=== PATIENT | male | born 1960 | race Caucasian/White ===

== ENCOUNTER 2024-04-27 16:45 | Emergency (ER) | payer OTHER ==
--- NOTE | 2024-04-27 17:36 | RAD REPORT ---
EXAM DESCRIPTION: RAD - Chest Single View - 04/27/2024 5:24 pm CLINICAL HISTORY: CHEST PAIN Chest pain. COMPARISON: Chest Single View dated 06/01/2023 FINDINGS: Portable technique limits examination quality. The lungs are grossly clear. The heart is mildly prominent. No displaced fractures.Dual lead pacer de vice present. IMPRESSION: No acute intrathoracic process suspected.
[2024-04-27 17:43] LABS: Absolute Basophils 0.1 K/uL (0-0.5); Absolute Eosinophils 0.1 K/uL (0-0.5); Absolute Lymphocytes (CBC) 2.7 K/uL (0.7-4.9); Absolute Monocytes 0.6 K/uL (0.1-1.3); Basophils % 0.6 % (0-1.3); Eosinophils % 1.7 % (0-4.4); Hematocrit 44.2 % (39.6-49.0); Hemoglobin 15.1 g/dL (13.6-17.9); Lymphocytes % 31.8 % (15.3-44.8); MCH 30.7 pg (27.0-35.0); MCHC 34.2 g/dL (32.0-36.0); MCV 89.8 fL (80-100); MPV 8.8 fL (7.6-11.3); Neutrophils % 58.9 % (41.7-73.7); Nucleated Red Blood Cells % 0.1 % (0-0); Platelets 231 thou/uL (152-406); RBC Red Blood Cell Count 4.92 M/uL (4.33-5.43); Red Cell Distribution Width 13.3 % (12.1-15.2)
[2024-04-27 17:49] LABS: PT Prothrombin Time 18.7 SECONDS (9.4-12.5); Protime INR 1.7
[2024-04-27 18:03] LABS: Albumin 3.9 g/dL (3.4-5.0); Albumin/Globulin Ratio 1.1 (1.1-1.8); Anion Gap 7.7 mEq/L (5.0-15.0); Bilirubin Direct 0.2 mg/dL (0-0.2); Bilirubin Indirect, Calculated 0.3 mg/dL (0.2-0.8); Bilirubin Total 0.5 mg/dL (0.2-1.0); Globulin 3.6 g/dL (2.3-3.5); Magnesium 2.1 mg/dL (1.6-2.4); Potassium 3.7 mEq/L (3.5-5.1); Protein, Total 7.5 g/dL (6.4-8.2); Troponin High Sensitivity 11.3 pg/mL (<58.9)
[2024-04-27] MEDS ORDERED: HYDROCODONE/APAP 7.5/325 MG TAB ONE (20:02)
--- NOTE | 2024-04-27 20:15 | ER ---
Nurse's Notes [facility] Name: Olu Scanlon Age: 63 yrs Sex: Male : 1960 Arrival Date: 04/27/2024 Time: 16:45 Bed 12 Private MD: Diagnosis: Presence of cardiac pacemaker;Chest pain, unspecified Presentation: 04/27 16:57 Chief complaint: Patient states: Chest tightness for 3 days. New pacemaker placed about ll1 5 weeks ago. Coronavirus screen: Client denies travel out of the [place] in the last 14 days. At this time, the client does not indicate any symptoms associated with coronavirus-19. Ebola Screen: Patient denies travel to an Ebola-affected area in the 21 days before illness onset. Initial Sepsis Screen: Does the patient meet any 2 criteria? No. Patient's initial sepsis screen is negative. Does the patient have a suspected source of infection? No. Patient's initial sepsis screen is negative. Risk Assessment: Do you want to hurt yourself or someone else? Patient reports no desire to harm self or others. Onset of symptoms was April 25, 2024. 16:57 Method Of Arrival: Ambulatory ll1 16:57 Acuity: CHUY 2 ll1 Historical: - Allergies: 16:58 No Known Allergies; ll1 - PMHx: 16:58 Myocardial infarction; TIA; ll1 16:54 Myocardial infarction; TIA; iw - PSHx: 16:58 pacemaker x 2; ll1 16:54 pacemaker x 2 (TIA); iw - Immunization history:: Adult Immunizations up to date, Adult Immunizations up to date. - Infectious Disease History:: Denies. - Social history:: Smoking status: Patient denies any tobacco usage or history of. Screenin:22 [facility] ED Fall Risk Assessment (Adult) History of falling in the last 3 months, iw including since admission No falls in past 3 months (0 pts) Confusion or Disorientation No (0 pts). [facility] ED Fall Risk Assessment (Adult) Intoxicated or Sedated No (0 pts) Impaired Gait No (0 pts) Mobility Assist Device Used No (0 pt) Altered Elimination No (0 pt) Score/Fall Risk Level 0 - 2 = Low Risk Oriented to surroundings. Abuse screen: Denies threats or abuse. Denies injuries from another. Nutritional screening: No deficits noted. Tuberculosis screening: No symptoms or risk factors identified. Assessment: 17:15 General: Appears in no apparent distress. Behavior is calm, cooperative. Pain: iw Complains of pain in anterior aspect of right upper chest, anterior aspect of left upper chest and mid-sternal area Pain radiates to chest. Pain: Pain began 2-3 days ago. Neuro: Level of Consciousness is awake, alert, obeys commands, Oriented to person, place, time, situation, Moves all extremities. Full function. Cardiovascular: Reports chest pain, Capillary refill < 3 seconds in bilateral fingers Patient's skin is warm and dry. Respiratory: Respiratory effort is even, unlabored, Respiratory pattern is regular, symmetrical. GI: Abdomen is flat, non-distended. Musculoskeletal: Range of motion:. 19:22 Reassessment: Patient appears in no apparent distress at this time. Patient and/or iw family updated on plan of care and expected duration. Pain level reassessed. Patient is alert, oriented x 3, equal unlabored respirations, skin warm/dry/pink. 20:43 Reassessment: Patient appears in no apparent distress at this time. Patient and/or jb4 family updated on plan of care and expected duration. Pain level reassessed. Patient is alert, oriented x 3, equal unlabored respirations, skin warm/dry/pink. 04/28 00:15 Reassessment: Patient appears in no apparent distress at this time. Patient and/or jb4 family updated on plan of care and expected duration. Pain level reassessed. Patient is alert, oriented x 3, equal unlabored respirations, skin warm/dry/pink. Vital Signs: 04/27 16:57 BP 139 / 87; Pulse 74; Resp 16; Temp 97.6; Pulse Ox 100% on R/A; Pain 4/10; ll1 19:22 BP 119 / 81; Pulse 73; Resp 16; Pulse Ox 98% on R/A; iw 20:43 BP 111 / 71; Pulse 72; Resp 17; Pulse Ox 94% on R/A; jb4 04/28 00:15 BP 108 / 90; Pulse 75; Resp 16; Pulse Ox 96% on R/A; jb4 04/27 16:57 Pain Scale: Adult ll1 Vitals: 04/27 20:43 Cardiac Rhythm Assessment Paced. jb4 ED Course: 16:46 Patient arrived in ED. ra3 16:46 Maricruz Kapadia [facility]C [facility]. sb4 16:46 Rony Oseguera DO is Attending Physician. sb4 16:58 Triage completed. ll1 16:58 Arm band placed on. EKG completed in triage. Results shown to MD. ll1 17:26 XRAY Chest (1 view) In Process Unspecified. EDMS 17:36 Heaven Ng, RN is Primary Nurse. iw 19:23 Patient maintains SpO2 saturation greater than 95% on room air. iw 04/28 00:15 Patient has correct armband on for positive identification. Bed in low position. Call jb4 light in reach. Side rails up X 1. Provided Education on: need for transfer.. Client placed on continuous cardiac and pulse oximetry monitoring. NIBP monitoring applied. laboratory monitor on. Pulse ox on. 00:15 No provider procedures requiring assistance completed. Patient transferred, IV remains jb4 in place. Administered Medications: 04/27 20:06 Drug: Hydrocodone-Acetaminophen PO (7.5 mg-325 mg) 1 tabs PO once Route: PO; cm10 Medication: 19:22 VIS not applicable for this client. iw Outcome: 20:14 ER care complete, transfer ordered by MD. sb4 04/28 00:15 Transferred by ground EMS to [facility], Transfer form completed. jb4 X-rays sent w/ patient. Condition: stable Discharge instructions given to patient, Instructed on the need for transfer, Demonstrated understanding of instructions, 00:16 Patient left the ED. jb4 Signatures: Dispatcher [employer] EDMD Heaven Ng, RN LEONARDO iw Brandon Dominique RN RN jb4 Darrell Medina RN RN ll1 Maricruz Kapadia PA-C PA-C sb4 Dianne Taveras RN RN cm10 Jagruti Bauman ra3
--- NOTE | 2024-04-27 20:15 | EDPHYS ---
Physician Documentation [facility] Name: Olu Scanlon Age: 63 yrs Sex: Male : 1960 Arrival Date: 04/27/2024 Time: 16:45 Bed 12 Private MD: ED Physician Rony Osegurea HPI: 04/27 17:19 This 63 yrs old Male presents to ER via Ambulatory with complaints of Chest Pain, Chest sb4 Tightness. 17:19 chest pain/pressure x 3 days. denies any radiation, shortness of breath, dizziness, sb4 palpitations, nausea, vomiting, dizziness. has cardiac history- MA and 2 strokes. 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 is on aspirin, plavix, and xarelto. had his pacemaker replaced 5 weeks ago. Historical: - Allergies: 16:58 No Known Allergies; ll1 - PMHx: 16:58 Myocardial infarction; TIA; ll1 16:54 Myocardial infarction; TIA; iw - PSHx: 16:58 pacemaker x 2; ll1 16:54 pacemaker x 2 (TIA); iw - Immunization history:: Adult Immunizations up to date, Adult Immunizations up to date. - Infectious Disease History:: Denies. - Social history:: Smoking status: Patient denies any tobacco usage or history of. ROS: 17:19 Constitutional: Negative for fever, chills, and weight loss, sb4 17:19 Cardiovascular: Positive for chest pain, 18:14 All other systems are negative, sb4 Exam: 18:14 Constitutional: This is a well developed, well nourished patient who is awake, alert, sb4 and in no acute distress. Head/Face: Normocephalic, atraumatic. Eyes: Extra-ocular motions intact. Periorbital areas with no swelling, redness, or edema. ENT: Mucous membranes moist. Cardiovascular: Regular rate and rhythm with a normal S1 and S2. Respiratory: Lungs have equal breath sounds bilaterally, clear to auscultation and percussion. No rales, rhonchi or wheezes noted. No increased work of breathing, no retractions or nasal flaring. Abdomen/GI: Soft, non-tender, no distension. Skin: Warm, dry with normal turgor. Normal color with no rashes, no lesions, and no evidence of cellulitis. MS/ Extremity: Pulses equal, no cyanosis. Neurovascular intact. Full, normal range of motion. Neuro: Awake and alert, GCS 15, oriented to person, place, time, and situation. Motor strength 5/5 in all extremities. Sensory grossly intact. Vital Signs: 16:57 BP 139 / 87; Pulse 74; Resp 16; Temp 97.6; Pulse Ox 100% on R/A; Pain 4/10; ll1 19:22 BP 119 / 81; Pulse 73; Resp 16; Pulse Ox 98% on R/A; iw 20:43 BP 111 / 71; Pulse 72; Resp 17; Pulse Ox 94% on R/A; jb4 04/28 00:15 BP 108 / 90; Pulse 75; Resp 16; Pulse Ox 96% on R/A; jb4 04/27 16:57 Pain Scale: Adult ll1 MDM: 04/27 16:48 Patient medically screened. sb4 20:50 External Records Reviewed: [employer] pacemaker interrogated. Shows 434 episodes sb4 of nonsustained V. tach events since February 08, 2024 and 51 episodes of SVT. 20:51 Data reviewed: vital signs, nurses notes, lab test result(s), EKG, radiologic studies, sb4 I have discussed the patient's presentation/case with the attending Emergency Department Physician;. Consideration of Admission/Observation Escalation of care including admission/observation considered. Counseling: I had a detailed discussion with the patient and/or guardian regarding the historical points, exam findings, and any diagnostic results supporting the discharge/admit diagnosis, lab results, radiology results, the need to transfer to another facility, for higher level of care, [facility] does not immediately have the required specialist. ED course: patient still having chest pain, pacemaker interrogation reveals 434 episodes of nonsustained vtach and 51 episodes of SVT in 2.5 months. will transfer patient back to his glass fitter, Dr. Knight . 21:56 Management of patient was discussed with the following: Paralegal Supervisor: Dr. Benson, sb4 glass fitter at [facility], agrees to consult. 04/27 17:04 Order name: Basic Metabolic Panel; Complete Time: 18:05 sb4 04/27 17:04 Order name: CBC with Diff; Complete Time: 18:12 sb4 04/27 17:04 Order name: LFT's; Complete Time: 18:05 sb4 04/27 17:04 Order name: Magnesium; Complete Time: 18:05 sb4 04/27 17:04 Order name: NT PRO-BNP; Complete Time: 18:05 sb4 04/27 17:04 Order name: PT-INR; Complete Time: 17:51 sb4 04/27 17:04 Order name: Troponin HS; Complete Time: 18:05 sb4 04/27 17:04 Order name: XRAY Chest (1 view) sb4 04/27 17:04 Order name: EKG; Complete Time: 17:05 sb4 04/27 20:53 Order name: EKG; Complete Time: 20:54 sb4 04/27 17:04 Order name: Cardiac monitoring; Complete Time: 18:38 sb4 04/27 17:04 Order name: EKG - Nurse/Tech; Complete Time: 17:36 sb4 04/27 17:04 Order name: IV Saline Lock; Complete Time: 17:36 sb4 04/27 17:04 Order name: Labs collected and sent; Complete Time: 17:36 sb4 04/27 17:04 Order name: O2 Per Protocol; Complete Time: 18:38 sb4 04/27 17:04 Order name: O2 Sat Monitoring; Complete Time: 18:38 sb4 04/27 17:04 Order name: Misc. Order: interrogate pacemaker; Complete Time: 18:07 sb4 Administered Medications: 20:06 Drug: Hydrocodone-Acetaminophen PO (7.5 mg-325 mg) 1 tabs PO once Route: PO; cm10 Disposition: 18:58 I was immediately available on-site in the Emergency Department for consultation in the ms3 care of the patient. Disposition Summary: 04/27/24 20:14 Transfer Ordered Notes: Transfer Location: [facility] sb4 Reason: Higher level of care sb4 Condition: Fair sb4 Problem: new sb4 Symptoms: are unchanged sb4 Accepting Physician: Dr. Knight(04/28/24 00:16) jb4 Diagnosis - Presence of cardiac pacemaker sb4 - Chest pain, unspecified sb4 Forms: - Medication Reconciliation Form sb4 - SBAR form sb4 Signatures: Dispatcher [employer] EDHeaven Alvarez RN RN Brandon Dominique RN RN jb4 Darrell Medina RN RN ll1 Rony Oseguera, DO DO ms3 Maricruz Kapadia PA-C PA-C sb4 Dianne Taveras RN RN cm10 Corrections: (The following items were deleted from the chart) 20:15 20:14 Dr. Eugene garrison sb4 20:15 20:14 Ventricular tachycardia ever4 sb4 04/28 00:16 04/27 20:15 Dr. Eugene [email or web address] jb4
--- NOTE | 2024-04-29 14:45 | EKG ---
Test Date: 2024-04-27 Test Time: 16:52:37 Cripple Cutter: MINH MEASUREMENT RESULTS: Intervals: Rate: 82 [place]: QRSD: 96 QT: 374 QTc: 436 [place]: P: [place]: QRS: 147 T: -17 INTERPRETIVE STATEMENTS: Demand pacemaker, interpretation is based on intrinsic rhythm Atrial fibrillation with premature ventricular or aberrantly conducted complexes Left posterior fascicular block Abnormal ECG Compared to ECG 06/01/2023 12:25:55 Ventricular premature complex(es) now present Left posterior fascicular block now present Right-axis deviation no longer present Myocardial infarct finding no longer present Electronically Signed On 04-29-24 14:40:56 CDT by Rodo Benitez
== END 2024-04-28 00:16 | disposition short-term general hospital (02) ==
LOC: ER 16:45
DX: R07.89 Other chest pain (principal); Z95.0 Presence of cardiac pacemaker; I25.2 Old myocardial infarction; Z86.73 Personal history of transient ischemic attack (TIA), and cerebral infarction without residual deficits; Z79.01 Long term (current) use of anticoagulants
CPT/HCPCS: 36415; 71045; 80048; 80076; 83735; 83880; 84484; 85025; 85610; 93005; 99285

== ENCOUNTER 2025-01-08 16:35 | Emergency (ER) | payer OTHER ==
[2025-01-08] MEDS ORDERED: MECLIZINE HCL 12.5 MG TAB ONE (17:25)
[2025-01-08] MEDS ORDERED: NA CHLORIDE 0.9% 1,000 ML ONE (17:26)
[2025-01-08 17:29] LABS: Absolute Eosinophils 0.1 K/uL (0-0.5); Absolute Lymphocytes (CBC) 2.4 K/uL (0.7-4.9); Absolute Monocytes 0.5 K/uL (0.1-1.3); Absolute Neutrophil 7.1 K/uL (1.8-8.0); Basophils % 0.4 % (0-1.3); Hematocrit 46.2 % (39.6-49.0); Hemoglobin 15.9 g/dL (13.6-17.9); Lymphocytes % 23.8 % (15.3-44.8); MCH 30.2 pg (27.0-35.0); MCHC 34.5 g/dL (32.0-36.0); MCV 87.7 fL (80-100); MPV 8.9 fL (7.6-11.3); Neutrophils % 69.8 % (41.7-73.7); Nucleated Red Blood Cells % 0.1 % (0-0); Platelets 252 thou/uL (152-406); RBC Red Blood Cell Count 5.27 M/uL (4.33-5.43); Red Cell Distribution Width 13.5 % (12.1-15.2)
--- NOTE | 2025-01-08 17:41 | RAD REPORT ---
EXAM: CT brain without contrast HISTORY: STROKE ALERT COMPARISON: None TECHNIQUE: Multiple contiguous axial images were obtained and a CT of the brain without contrast. Sag ittal and coronal reformats were performed. One or more of the following dose reduction techniques were used: Automated exposure control, adjust ment of the mA and/or kV according to patient size, and/or iterative reconstruction. FINDINGS: No evidence of hydrocephalus, intracranial hemorrhage, or extra-axial fluid collection. The brain is normal in morphology. No evidence of midline shift or areas of brain edema. The calvarium is intact. The visualized paranasal sinuses and mastoid air cells are essentially clear . IMPRESSION: No evidence of acute intracranial abnormality. The findings were communicated with Isrrael Perry MD at 01/08/2025 5:38 PM by telephone.
[2025-01-08 17:42] LABS: PT Prothrombin Time 19.3 SECONDS (10-13.0); PTT, Activated Partial Thromb 40.5 SECONDS (27.2-37.4); Protime INR 1.74
--- NOTE | 2025-01-08 17:45 | RAD REPORT ---
EXAMINATION: CTA HEAD CLINICAL INDICATION: STROKE ALERT TECHNIQUE: Axial CT images were obtained through the head after intravenous contrast utilizing angiog raphic protocol with 3D post-processing (maximum intensity projection images, volume rendered images and/or shaded surface rendered images). One or more of the following dose reduction technique s were used: Automated exposure control, adjustment of the mA and/or kV according to patient size, and/or iterative reconstruction. Unless otherwise specified, incidental findings do not require dedic ated imaging follow-up. COMPARISON: No prior exam. FINDINGS: ICA: The petrous, cavernous, and supraclinoid segments of the bilateral internal carotid arteries are normal. The ophthalmic artery origins are visualized and normal. The posterior communicating arteries are patent. ANDREW: Anterior cerebral arteries are normal bilaterally. The anterior communicating artery is patent. MCA: Middle cerebral arteries are normal bilaterally. 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 Vertebrobasilar: The vertebral arteries are patent. The basilar artery is normal in appearance. 3D images confirm these findings. IMPRESSION: No significant flow abnormality is identified.
--- NOTE | 2025-01-08 17:47 | RAD REPORT ---
EXAMINATION: CTA NECK CLINICAL INDICATION: stroke alert TECHNIQUE: Axial CT images were obtained from the aortic arch to the skull base after intravenous con trast utilizing angiographic protocol with 3D post-processing (maximum intensity projection images, volume rendered images and/or shaded surface rendered images). One or more of the following dose redu ction techniques were used: Automated exposure control, adjustment of the mA and/or kV according to patient size, and/or iterative reconstruction. Unless otherwise specified, incidental findings do not require dedicated imaging follow-up. COMPARISON: No prior exam. FINDINGS: AORTA: The imaged aortic arch is normal. CCA: The common carotid arteries are patent and normal in caliber. ICA/ECA: Bilateral internal and external carotid arteries are patent. There is no significant interna l carotid artery stenosis. VERTEBRAL: The cervical vertebral arteries are patent. The vertebral arteries are codominant. SOFT TISSUE: No significant neck soft tissue abnormalities. The visualized lung apices are clear. Chr onic sphenoid sinusitis. 3D images confirm these findings. IMPRESSION: No significant flow abnormality of the neck vessels is identified. NASCET criteria used. Mild 0-49% stenosis Moderate 50-69% stenosis Severe 70-99% stenosis
[2025-01-08 17:53] LABS: Anion Gap 12.9 mEq/L (5.0-15.0); Potassium 3.9 mEq/L (3.5-5.1); Troponin High Sensitivity 9.4 pg/mL (<58.9)
[2025-01-08] MEDS ORDERED: ASPIRIN 325 MG TAB ONE (18:04)
[2025-01-08] MEDS ORDERED: FOLIC ACID 5 MG/ML VIAL ONE (18:16)
--- NOTE | 2025-01-08 18:16 | RAD REPORT ---
EXAMINATION: ONE VIEW CHEST XR CLINICAL INDICATION: stroke alert TECHNIQUE: Frontal chest projection is submitted. Examination is limited by patient positioning and t echnique. COMPARISON: 04/27/2024 FINDINGS: The lungs are well inflated and clear. The heart is upper limit of normal in size. No displaced fract ures identified. Dual-lead pacer device. IMPRESSION: No acute intrathoracic abnormalities.
--- NOTE | 2025-01-08 18:20 | EDPHYS ---
Physician Documentation [facility] Name: Olu Scanlon Age: 64 yrs Sex: Male : 1960 Arrival Date: 01/08/2025 Time: 16:35 Bed 3 Private MD: ED Physician Isrrael Perry HPI: 01/08 17:23 This 64 yrs old Male presents to ER via Ambulatory with complaints of Balance rn Instability, Dizziness, Doesn't Feel Right. 17:24 The patient presents to the emergency department with difficult walking, the patient rn falls to the right. Onset: The symptoms/episode began/occurred this morning. Severity of symptoms: At their worst the symptoms were moderate in the emergency department the symptoms are unchanged. The patient has experienced similar episodes in the past, but today's symptoms are worse. Patient reports upon awakening today immediately noticed vertigo-like symptoms, dizziness, room spinning, unable to walk when getting out of bed, feels like is falling to the right. Has had vertigo before but this feels different as he says this is constant instead of episodic like it used to be and is also associated with right arm and right leg heaviness/weakness. No speech or vision trouble. Took Dramamine at home and did not help. No head injury. Last known normal was last night when went to bed.. Historical: - Allergies: 16:47 No Known Allergies; aa5 - PMHx: 16:47 Myocardial infarction; TIA; vertigo (Unknown); aa5 16:55 Diabetes mellitus; Type 2; aa5 - PSHx: 16:47 pacemaker x 2; aa5 - Immunization history:: Adult Immunizations unknown. - Infectious Disease History:: Denies. - Social history:: Smoking status: Patient denies any tobacco usage or history of. - Family history:: not pertinent. - Hospitalizations: : No recent hospitalization is reported. ROS: 17:24 Constitutional: Negative for fever, chills, and weight loss, Neck: Negative for injury, rn pain, and swelling, Cardiovascular: Negative for chest pain, palpitations, and edema, Respiratory: Negative for shortness of breath, cough, wheezing, and pleuritic chest pain, Abdomen/GI: Negative for abdominal pain, nausea, vomiting, diarrhea, and constipation, MS/Extremity: Negative for injury and deformity, Skin: Negative for injury, rash, and discoloration, Neuro: Negative for headache, numbness, tingling, and seizure, Exam: 17:24 Constitutional: This is a well developed, well nourished patient who is awake, alert, rn appears anxious Cardiovascular: Regular rate and irregular rhythm. No pulse deficits. Respiratory: No increased work of breathing, no retractions or nasal flaring. Abdomen/GI: Soft, non-tender MS/ Extremity: Pulses equal, no cyanosis. Neurovascular intact. Full, normal range of motion. Equal circumference. Neuro: Awake and alert, GCS 15, oriented to person, place, time, and situation. Cranial nerves II-XII grossly intact. 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 Gait not tested due to moderate to severe dizziness. 18:35 ECG was reviewed by the Attending Physician. rn Vital Signs: 16:48 BP 112 / 84; Pulse 92; Resp 18 S; Temp 97.9(TE); Pulse Ox 96% on R/A; Weight 88.45 kg aa5 (R); Height 6 ft. 1 in. (R); 17:44 BP 127 / 85; Pulse 89; Resp 18; Pulse Ox 96% on R/A; jb4 18:38 BP 120 / 83; Pulse 85; Resp 16; Pulse Ox 96% on R/A; jb4 19:43 BP 118 / 81; Pulse 92; Resp 16; Temp 97.9; Pulse Ox 96% ; Pain 0/10; bm8 21:42 BP 107 / 79; Pulse 88; Resp 17; Temp 97.9; Pulse Ox 96% ; Pain 0/10; bm8 22:27 BP 111 / 87; Pulse 90; Resp 18; Temp 98; Pulse Ox 98% ; Pain 0/10; bm8 16:48 Body Mass Index 25.73 (88.45 kg, 185.42 cm) aa5 19:43 Pain Scale: Adult bm8 21:42 Pain Scale: Adult bm8 22:27 Pain Scale: Adult bm8 NIH Stroke Scale Scores: 17:30 NIHSS Score: 2 jb4 18:18 NIHSS Score: 0 rn 18:38 NIHSS Score: 2 jb4 Janis Coma Score: 19:43 Eye Response: spontaneous(4). Motor Response: obeys commands(6). Verbal Response: bm8 oriented(5). Total: 15. 21:42 Eye Response: spontaneous(4). Motor Response: obeys commands(6). Verbal Response: bm8 oriented(5). Total: 15. 22:27 Eye Response: spontaneous(4). Motor Response: obeys commands(6). Verbal Response: bm8 oriented(5). Total: 15. MDM: 16:51 Medical Screening Exam initiated rn 17:38 ED course: Dr. Huang reports negative CT stroke protocol head. Patient woke up with rn symptoms and last known normal last night. Not TNK candidate. Awaiting on CT angios head and neck.. 18:18 Data reviewed: vital signs, nurses notes, lab test result(s), EKG, radiologic studies, rn CT scan, and as a result, I will admit patient. Consideration of Admission/Observation Patient was admitted/placed on observation. Escalation of care including admission/observation considered. Care significantly affected by the following chronic conditions: Hypertension, TIA, CVA, vertigo. Counseling: I had a detailed discussion with the patient and/or guardian regarding the historical points, exam findings, and any diagnostic results supporting the discharge/admit diagnosis, lab results, radiology results, the need for further work-up and treatment in the hospital, the need to transfer to another facility. 01/08 17:05 Order name: Basic Metabolic Panel; Complete Time: 17:53 rn 01/08 17:05 Order name: CBC with Diff; Complete Time: 17:48 rn 01/08 17:05 Order name: High Sensitivity Troponin; Complete Time: 17:53 rn 01/08 17:05 Order name: Protime (+inr); Complete Time: 17:48 rn 01/08 17:05 Order name: Ptt, Activated; Complete Time: 17:48 rn 01/08 17:52 Order name: Glucose, Ancillary Testing; Complete Time: 17:53 EDMD 01/08 17:54 Order name: Glucose, Ancillary Testing EDMD 01/08 21:21 Order name: CREATININE WHOLE BLOOD EDMD 01/08 17:05 Order name: CT Head Angio; Complete Time: 17:48 rn 01/08 17:05 Order name: CT Neck Angio; Complete Time: 17:48 rn 01/08 17:05 Order name: CT Stroke Brain w/o Contrast; Complete Time: 17:48 rn 01/08 17:05 Order name: Stroke CXR 1 View; Complete Time: 18:17 rn 01/08 17:05 Order name: Accucheck; Complete Time: 17:43 rn 01/08 17:05 Order name: Cardiac monitoring; Complete Time: 17:38 rn 01/08 17:05 Order name: EKG - Nurse/Tech; Complete Time: 17:43 rn 01/08 17:05 Order name: IV Saline Lock; Complete Time: 17:20 rn 01/08 17:05 Order name: Labs collected and sent; Complete Time: 17:20 rn 01/08 17:05 Order name: NPO; Complete Time: 17:20 rn 01/08 17:05 Order name: O2 Per Protocol; Complete Time: 17:20 rn 01/08 17:05 Order name: O2 Sat Monitoring; Complete Time: 17:20 rn 01/08 17:05 Order name: Stroke Swallow Screen; Complete Time: 17:43 rn EC:35 Rate is 91 beats/min. Rhythm is irregularly irregular. QRS [place] is Normal. QT interval rn is normal. No Q waves. T waves are Normal. No ST changes noted. Clinical impression: Atrial Fibrillation. Interpreted by me. Reviewed by me. Administered Medications: 17:43 Drug: NS 0.9% IV 1000 ml IV at 1000 ml once; to be given as a bolus over 60 minutes jb4 Route: IV; Rate: 1000 ml; Site: right antecubital; 19:45 Follow up: Response: No adverse reaction; IV Status: Completed infusion bm8 17:44 Drug: Meclizine PO 50 mg PO once Route: PO; jb4 18:22 Follow up: Response: No adverse reaction jb4 18:09 Drug: Aspirin PO 325 mg PO once Route: PO; jb4 18:22 Follow up: Response: No adverse reaction jb4 18:22 Drug: foLIC Acid IVPB 1 mg IVPB once Route: IVPB; Site: right antecubital; jb4 19:44 Follow up: Response: No adverse reaction; IV Status: Completed infusion bm8 Disposition Summary: 01/08/25 18:19 Transfer Ordered Notes: Transfer Location: [facility] rn Reason: Higher level of care rn Condition: Stable rn Problem: new rn Symptoms: are unchanged rn Accepting Physician: (01/08/25 23:03) bm8 Diagnosis - Ataxia, unspecified rn - Weakness rn Forms: - Medication Reconciliation Form rn - SBAR form rn NIH Stroke Scale - NIH Stroke Score Date: 01/08/2025 Time: 17:30 Total Score = 2 10. Dysarthria (speech clarity - read or repeat words) - 0(Normal) 11. Extinction and Inattention (visual/tactile/auditory/spatial/personal) - 0(No abnormality) 1a. Level of Consciousness (LOC) - 0(Alert) 1b. Level of Consciousness (LOC) (Month \T\ Age) - 0(Both) 1c. LOC Commands (Open \T\ Closes Eyes/Plaster Machine Operator) - 0(Both) 2. Best Gaze (Lateral Gaze Paresis) - 0(Normal) 3. Visual Field Loss - 0(No visual loss) 4. Facial Palsy - 0(Normal) 5a. Left Arm: Motor (10-second hold) - 0(No drift) 5b. Right Arm: Motor (10-second hold) - 0(No drift) 6a. Left Leg: Motor (5-second hold - always test supine) - 0(No drift) 6b. Right Leg: Motor (5-second hold - always test supine) - 0(No drift) 7. Limb Ataxia (finger/nose \T\ heel/daly - test with eyes open) - 2(Present in two limbs) 8. Sensory Loss (pinprick arms/legs/face) - 0(Normal) 9. Best Language: Aphasia (description/naming/reading) - 0(No aphasia) Initials: jb4 NIH Stroke Scale - NIH Stroke Score Date: 01/08/2025 Time: 18:18 Total Score = 0 10. Dysarthria (speech clarity - read or repeat words) - 0(Normal) 11. Extinction and Inattention (visual/tactile/auditory/spatial/personal) - 0(No abnormality) 1a. Level of Consciousness (LOC) - 0(Alert) 1b. Level of Consciousness (LOC) (Month \T\ Age) - 0(Both) 1c. LOC Commands (Open \T\ Closes Eyes/Plaster Machine Operator) - 0(Both) 2. Best Gaze (Lateral Gaze Paresis) - 0(Normal) 3. Visual Field Loss - 0(No visual loss) 4. Facial Palsy - 0(Normal) 5a. Left Arm: Motor (10-second hold) - 0(No drift) 5b. Right Arm: Motor (10-second hold) - 0(No drift) 6a. Left Leg: Motor (5-second hold - always test supine) - 0(No drift) 6b. Right Leg: Motor (5-second hold - always test supine) - 0(No drift) 7. Limb Ataxia (finger/nose \T\ heel/daly - test with eyes open) - 0(Absent) 8. Sensory Loss (pinprick arms/legs/face) - 0(Normal) 9. Best Language: Aphasia (description/naming/reading) - 0(No aphasia) Initials: pedro NIH Stroke Scale - NIH Stroke Score Date: 01/08/2025 Time: 18:38 Total Score = 2 10. Dysarthria (speech clarity - read or repeat words) - 0(Normal) 11. Extinction and Inattention (visual/tactile/auditory/spatial/personal) - 0(No abnormality) 1a. Level of Consciousness (LOC) - 0(Alert) 1b. Level of Consciousness (LOC) (Month \T\ Age) - 0(Both) 1c. LOC Commands (Open \T\ Closes Eyes/Plaster Machine Operator) - 0(Both) 2. Best Gaze (Lateral Gaze Paresis) - 0(Normal) 3. Visual Field Loss - 0(No visual loss) 4. Facial Palsy - 0(Normal) 5a. Left Arm: Motor (10-second hold) - 0(No drift) 5b. Right Arm: Motor (10-second hold) - 0(No drift) 6a. Left Leg: Motor (5-second hold - always test supine) - 0(No drift) 6b. Right Leg: Motor (5-second hold - always test supine) - 0(No drift) 7. Limb Ataxia (finger/nose \T\ heel/daly - test with eyes open) - 2(Present in two limbs) 8. Sensory Loss (pinprick arms/legs/face) - 0(Normal) 9. Best Language: Aphasia (description/naming/reading) - 0(No aphasia) Initials: jb4 Signatures: Dispatcher [employer] EDIsrrael Moreno MD MD rn Calderon, Audri, RN RN aa5 Brandon Dominique RN RN jb4 Marcus Alxeis RN RN bm8 Corrections: (The following items were deleted from the chart) 17: 17:06 BASIC METABOLIC PANEL+C.LAB.BRZ ordered. EDMS EDMS 17: 17:06 CBC+H.LAB.BRZ ordered. EDMS EDMS 17: 17:06 Troponin High Sensitivity+C.LAB.BRZ ordered. EDMS EDMS 17: 17:06 PROTIME (+INR)+COAG.LAB.BRZ ordered. EDMS EDMS 17: 17:06 PTT, ACTIVATED+COAG.LAB.BRZ ordered. EDMS EDMS 17: 17:06 CT-STROKE BRAIN W/O CONTRAST+CT.RAD.BRZ ordered. EDMS EDMS 17: 17:06 Chest Single View+RAD.RAD.BRZ ordered. EDMD EDMS 18:35 17:24 Constitutional: This is a well developed, well nourished patient who is rn awake, alert, appears anxious Cardiovascular: Regular rate and rhythm. No pulse deficits. Respiratory: No increased work of breathing, no retractions or nasal flaring. Abdomen/GI: Soft, non-tender MS/ Extremity: Pulses equal, no cyanosis. Neurovascular intact. Full, normal range of motion. Equal circumference. Neuro: Awake and alert, GCS 15, oriented to person, place, time, and situation. Cranial nerves II-XII grossly intact. 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 Gait not tested due to moderate to severe dizziness. rn 23:03 18:19 Dr. vasquez [email or web address]
--- NOTE | 2025-01-08 18:20 | ER ---
Nurse's Notes Formerly [facility] Name: Olu Scanlon Age: 64 yrs Sex: Male : 1960 Arrival Date: 01/08/2025 Time: 16:35 Bed 3 Private MD: Diagnosis: Ataxia, unspecified;Weakness Presentation: 01/08 16:48 Acuity: CHUY 2 aa5 16:48 Chief complaint: Patient states: unsteady and dizziness that began today upon waking aa5 up. Pt reports hx of vertigo. Coronavirus screen: At this time, the client does not indicate any symptoms associated with coronavirus-19. Ebola Screen: Patient denies travel to an Ebola-affected area in the 21 days before illness onset. Initial Sepsis Screen: Does the patient meet any 2 criteria? HR > 90 bpm. Does the patient have a suspected source of infection? No. Patient's initial sepsis screen is negative. Risk Assessment: Do you want to hurt yourself or someone else? Patient reports no desire to harm self or others. Onset of symptoms was January 08, 2025. 16:48 Method Of Arrival: Ambulatory aa5 Historical: - Allergies: 16:47 No Known Allergies; aa5 - PMHx: 16:47 Myocardial infarction; TIA; vertigo (Unknown); aa5 16:55 Diabetes mellitus; Type 2; aa5 - PSHx: 16:47 pacemaker x 2; aa5 - Immunization history:: Adult Immunizations unknown. - Infectious Disease History:: Denies. - Social history:: Smoking status: Patient denies any tobacco usage or history of. - Family history:: not pertinent. - Hospitalizations: : No recent hospitalization is reported. Screenin:39 [facility] ED Fall Risk Assessment (Adult) History of falling in the last 3 months, jb4 including since admission No falls in past 3 months (0 pts) Confusion or Disorientation No (0 pts) Intoxicated or Sedated No (0 pts) Impaired Gait Yes (1 pt) Mobility Assist Device Used No (0 pt) Altered Elimination No (0 pt) Score/Fall Risk Level 0 - 2 = Low Risk Oriented to surroundings, Maintained a safe environment. Abuse screen: Denies threats or abuse. Nutritional screening: No deficits noted. Tuberculosis screening: No symptoms or risk factors identified. Assessment: 17:30 VAN Scoring: Arm Drift: Patients demonstrates NO arm weakness. Patient is VAN Negative. jb4 Visual Disturbance: No visual disturbance noted. Aphasia: No aphasia noted. Neglect: No neglect noted. [place] Swallow Protocol Brief Cognitive Screen What is your name? Normal, Where are you right now? Normal, What year is it? Normal. Oral Mechanism Examination Facial Symmetry: 3 oz Water Swallow Challenge: Pt able to drink all water without stopping, coughing, choking or throat clearing: Yes Result: PASS MD Notified: Isrrael Perry MD. TNKase (Tenecteplase) Screening: Contraindications: Patient reports onset of signs and symptoms of stroke greater than 6 hours ago: Yes. 17:38 Reassessment: Back from CT now. Pt back on monitors. ss 17:44 General: Appears in no apparent distress. comfortable, Behavior is calm, cooperative, jb4 appropriate for age. Pain: Denies pain. Neuro: Level of Consciousness is awake, alert, obeys commands, Oriented to person, place, time, situation. Cardiovascular: Patient's skin is warm and dry. Respiratory: Airway is patent Respiratory effort is even, unlabored, Respiratory pattern is regular, symmetrical. Derm: Skin is intact, Skin is pink, warm \T\ dry. Musculoskeletal: Circulation, motion, and sensation intact. Range of motion: intact in all extremities. 17:54 Reassessment: Initiated transfer to [facility] per Dr. Perry. DX: Ataxia, R sided ss weakness. Pt needs neuro and MRI. Spoke with Margarita Garcia, account services coordinator who states she will call back. 19:43 [place] Swallow Protocol Exclusion Criteria: Unable to remain alert for testing: No NPO bm8 for medical/surgical reason by provider order No Head-of-bed restricted <30 degrees Tracheostomy tube present No No thin liquids due to preexisting dysphagia/baseline modified diet thickened liquids No Exclusion Criteria Result: Proceed. Reassessment: Patient appears in no apparent distress at this time. Patient and/or family updated on plan of care and expected duration. Pain level reassessed. Patient is alert, oriented x 3, equal unlabored respirations, skin warm/dry/pink. Patient denies pain at this time. 21:42 Reassessment: Patient appears in no apparent distress at this time. Patient and/or bm8 family updated on plan of care and expected duration. Pain level reassessed. Patient is alert, oriented x 3, equal unlabored respirations, skin warm/dry/pink. Patient denies pain at this time. Patient states feeling better. 22:27 Reassessment: Patient appears in no apparent distress at this time. No changes from bm8 previously documented assessment. Patient and/or family updated on plan of care and expected duration. Pain level reassessed. Patient is alert, oriented x 3, equal unlabored respirations, skin warm/dry/pink. report given to LEONARDO Lubin at [facility] Patient denies pain at this time. Patient states feeling better. Vital Signs: 16:48 BP 112 / 84; Pulse 92; Resp 18 S; Temp 97.9(TE); Pulse Ox 96% on R/A; Weight 88.45 kg aa5 (R); Height 6 ft. 1 in. (R); 17:44 BP 127 / 85; Pulse 89; Resp 18; Pulse Ox 96% on R/A; jb4 18:38 BP 120 / 83; Pulse 85; Resp 16; Pulse Ox 96% on R/A; jb4 19:43 BP 118 / 81; Pulse 92; Resp 16; Temp 97.9; Pulse Ox 96% ; Pain 0/10; bm8 21:42 BP 107 / 79; Pulse 88; Resp 17; Temp 97.9; Pulse Ox 96% ; Pain 0/10; bm8 22:27 BP 111 / 87; Pulse 90; Resp 18; Temp 98; Pulse Ox 98% ; Pain 0/10; bm8 16:48 Body Mass Index 25.73 (88.45 kg, 185.42 cm) aa5 19:43 Pain Scale: Adult bm8 21:42 Pain Scale: Adult bm8 22:27 Pain Scale: Adult bm8 [place] Score: 19:43 Eye Response: spontaneous(4). Motor Response: obeys commands(6). Verbal Response: bm8 oriented(5). Total: 15. 21:42 Eye Response: spontaneous(4). Motor Response: obeys commands(6). Verbal Response: bm8 oriented(5). Total: 15. 22:27 Eye Response: spontaneous(4). Motor Response: obeys commands(6). Verbal Response: bm8 oriented(5). Total: 15. NIH Stroke Scale Scores: 17:30 NIHSS Score: 2 jb4 18:18 NIHSS Score: 0 rn 18:38 NIHSS Score: 2 jb4 ED Course: 16:39 Patient arrived in ED. cj3 16:47 Arm band placed on. aa5 16:48 Triage completed. aa5 16:50 Isrrael Perry MD is Attending Physician. rn 17:01 Brandon Dominique, RN is Primary Nurse. jb4 17:20 Ptt, Activated Sent. jb4 17:20 Protime (+inr) Sent. jb4 17:20 High Sensitivity Troponin Sent. jb4 17:20 CBC with Diff Sent. jb4 17:20 Basic Metabolic Panel Sent. jb4 17:20 No provider procedures requiring assistance completed. Inserted saline lock: 18 gauge jb4 in right antecubital area, using aseptic technique. Blood collected. 17:35 CT Head Angio In Process Unspecified. EDMS 17:35 CT Neck Angio In Process Unspecified. EDMS 17:35 CT Stroke Brain w/o Contrast In Process Unspecified. EDMS 17:43 Basic Metabolic Panel Sent. jb4 17:43 CBC with Diff Sent. jb4 17:43 High Sensitivity Troponin Sent. jb4 17:46 EKG done, by ED staff, reviewed by Isrrael Perry MD. eb 17:52 Stroke CXR 1 View In Process Unspecified. EDMS 18:39 Patient has correct armband on for positive identification. Bed in low position. Call jb4 light in reach. Side rails up X 1. Provided Education on: plan of care. 18:40 Patient transferred, IV remains in place. jb4 21:42 Client placed on continuous cardiac and pulse oximetry monitoring. NIBP monitoring bm8 applied. playground monitor on. Pulse ox on. NIBP on. Door closed. Noise minimized. Warm blanket given. Pillow given. Verbal reassurance given. Head of bed elevated. Administered Medications: 17:43 Drug: NS 0.9% IV 1000 ml IV at 1000 ml once; to be given as a bolus over 60 minutes jb4 Route: IV; Rate: 1000 ml; Site: right antecubital; 19:45 Follow up: Response: No adverse reaction; IV Status: Completed infusion bm8 17:44 Drug: Meclizine PO 50 mg PO once Route: PO; jb4 18:22 Follow up: Response: No adverse reaction jb4 18:09 Drug: Aspirin PO 325 mg PO once Route: PO; jb4 18:22 Follow up: Response: No adverse reaction jb4 18:22 Drug: foLIC Acid IVPB 1 mg IVPB once Route: IVPB; Site: right antecubital; jb4 19:44 Follow up: Response: No adverse reaction; IV Status: Completed infusion bm8 Medication: 18:39 VIS not applicable for this client. jb4 Outcome: 18:19 ER care complete, transfer ordered by MD. vasquez 19:51 Condition: stable bm8 23:02 Transferred by ground EMS to [facility], Transfer form completed. bm8 X-rays sent w/ patient. 23:02 Instructed on the need for transfer, Demonstrated understanding of instructions, follow-up care, medications, 23:03 Patient left the ED. bm8 NIH Stroke Scale - NIH Stroke Score Date: 01/08/2025 Time: 17:30 Total Score = 2 10. Dysarthria (speech clarity - read or repeat words) - 0(Normal) 11. Extinction and Inattention (visual/tactile/auditory/spatial/personal) - 0(No abnormality) 1a. Level of Consciousness (LOC) - 0(Alert) 1b. Level of Consciousness (LOC) (Month \T\ Age) - 0(Both) 1c. LOC Commands (Open \T\ Closes Eyes/Scheduler) - 0(Both) 2. Best Gaze (Lateral Gaze Paresis) - 0(Normal) 3. Visual Field Loss - 0(No visual loss) 4. Facial Palsy - 0(Normal) 5a. Left Arm: Motor (10-second hold) - 0(No drift) 5b. Right Arm: Motor (10-second hold) - 0(No drift) 6a. Left Leg: Motor (5-second hold - always test supine) - 0(No drift) 6b. Right Leg: Motor (5-second hold - always test supine) - 0(No drift) 7. Limb Ataxia (finger/nose \T\ heel/daly - test with eyes open) - 2(Present in two limbs) 8. Sensory Loss (pinprick arms/legs/face) - 0(Normal) 9. Best Language: Aphasia (description/naming/reading) - 0(No aphasia) Initials: 4 NIH Stroke Scale - NIH Stroke Score Date: 01/08/2025 Time: 18:18 Total Score = 0 10. Dysarthria (speech clarity - read or repeat words) - 0(Normal) 11. Extinction and Inattention (visual/tactile/auditory/spatial/personal) - 0(No abnormality) 1a. Level of Consciousness (LOC) - 0(Alert) 1b. Level of Consciousness (LOC) (Month \T\ Age) - 0(Both) 1c. LOC Commands (Open \T\ Closes Eyes/Scheduler) - 0(Both) 2. Best Gaze (Lateral Gaze Paresis) - 0(Normal) 3. Visual Field Loss - 0(No visual loss) 4. Facial Palsy - 0(Normal) 5a. Left Arm: Motor (10-second hold) - 0(No drift) 5b. Right Arm: Motor (10-second hold) - 0(No drift) 6a. Left Leg: Motor (5-second hold - always test supine) - 0(No drift) 6b. Right Leg: Motor (5-second hold - always test supine) - 0(No drift) 7. Limb Ataxia (finger/nose \T\ heel/daly - test with eyes open) - 0(Absent) 8. Sensory Loss (pinprick arms/legs/face) - 0(Normal) 9. Best Language: Aphasia (description/naming/reading) - 0(No aphasia) Initials: rn NIH Stroke Scale - NIH Stroke Score Date: 01/08/2025 Time: 18:38 Total Score = 2 10. Dysarthria (speech clarity - read or repeat words) - 0(Normal) 11. Extinction and Inattention (visual/tactile/auditory/spatial/personal) - 0(No abnormality) 1a. Level of Consciousness (LOC) - 0(Alert) 1b. Level of Consciousness (LOC) (Month \T\ Age) - 0(Both) 1c. LOC Commands (Open \T\ Closes Eyes/Scheduler) - 0(Both) 2. Best Gaze (Lateral Gaze Paresis) - 0(Normal) 3. Visual Field Loss - 0(No visual loss) 4. Facial Palsy - 0(Normal) 5a. Left Arm: Motor (10-second hold) - 0(No drift) 5b. Right Arm: Motor (10-second hold) - 0(No drift) 6a. Left Leg: Motor (5-second hold - always test supine) - 0(No drift) 6b. Right Leg: Motor (5-second hold - always test supine) - 0(No drift) 7. Limb Ataxia (finger/nose \T\ heel/daly - test with eyes open) - 2(Present in two limbs) 8. Sensory Loss (pinprick arms/legs/face) - 0(Normal) 9. Best Language: Aphasia (description/naming/reading) - 0(No aphasia) Initials: jb4 Signatures: Dispatcher [employer] EDMS Isrrael Perry MD MD rn Calderon, Audri, RN RN aa5 Amy Patino RN RN Brandon Skelton RN RN jb4 Daniela Toledo Brad, RN RN bm8 Shirley Cantrell 3 Corrections: (The following items were deleted from the chart) 20:25 19:50 Reassessment: Report given to LEONARDO Blanco a [facility] 20:25 19:51 Transferred by ground EMS Transfer form completed. X-rays sent w/ bm8 patient. Note: [facility] 8 20:25 19:51 Discharge instructions given to patient, family, Instructed on follow up bm8 and referral plans. the need for transfer, no drinking with medication, safety practices, Demonstrated understanding of instructions, follow-up care, medications, bm8
[2025-01-08 23:33] VITALS: BP 111/87; TEMP 98; O2SAT 98
--- NOTE | 2025-01-09 11:57 | EKG ---
Test Date: 2025-01-08 Test Time: 17:43:01 Histopathology Technician: CLARISSA MEASUREMENT RESULTS: Intervals: Rate: 91 ND: QRSD: 98 QT: 332 QTc: 408 Fabius: P: ND: QRS: 80 T: -26 INTERPRETIVE STATEMENTS: Atrial fibrillation with premature ventricular or aberrantly conducted complexes Low voltage QRS Cannot rule out Anterior infarct, age undetermined Abnormal ECG Compared to ECG 04/27/2024 16:52:37 Low QRS voltage now present Myocardial infarct finding now present Ventricular-paced complex(es) or rhythm no longer present Left posterior fascicular block no longer present Electronically Signed On 01-09-25 11:56:18 CDT by Rodo Benitez
== END 2025-01-08 23:03 | disposition short-term general hospital (02) ==
LOC: ER 16:35
DX: R27.0 Ataxia, unspecified (principal); R53.1 Weakness; E11.9 Type 2 diabetes mellitus without complications; I25.2 Old myocardial infarction; Z95.0 Presence of cardiac pacemaker; Z86.73 Personal history of transient ischemic attack (TIA), and cerebral infarction without residual deficits
CPT/HCPCS: 96365; 96361; 93005; 85025; 80048; 36415; 85610; 82565; 82947; 85730; 84484; 70496; 70498; 70450; 71045; 99285; Q9967; J8597; J7030